=== PATIENT | female | born 1965 | race African-American/Black ===

== ENCOUNTER 2016-12-17 16:45 | Emergency (ER) | payer BC ==
[2016-12-17 13:45] LABS: BASOPHILS 0.2 %; BASOPHILS ABSOLUTE 0.01 10/3/uL (0.0-0.16); EOSINOPHILS 1.2 %; EOSINOPHILS ABSOLUTE 0.07 10/3/uL (0.0-0.53); ER CBC TAT 0 Hrs 09 Mins; HEMATOCRIT 36.5 % (36.0-48.0); HEMOGLOBIN 11.8 g/dL (12.0-16.0); IMMATURE GRANULOCYTES 0.5 %; IMMATURE GRANULOCYTES ABSOLUTE 0.03 10/3/uL (0.0-0.11); LYMPHOCYTES 31.3 %; LYMPHOCYTES ABSOLUTE 1.76 10/3/uL (0.67-4.30); MANUAL DIFF NO %; MEAN CORPUS HGB CONC 32.3 g/dL (32.0-36.0); MEAN CORPUSCULAR HEMOGLOB 27.7 pg (26.0-34.0); MEAN CORPUSCULAR VOLUME 85.7 fL (80-100); MEAN PLATELET VOLUME 10.6 fL (9.2-13.0); MONOCYTES 7.1 %; NEUTROPHILS 59.7 %; NEUTROPHILS ABSOLUTE 3.35 10/3/uL (2.02-8.40); PLATELET COUNT 367 10/3/uL (150-400); RBC DISTRIBUTION WIDTH 12.5 % (12.0-16.0); RED CELL COUNT 4.26 10/6/uL (4.0-5.6); WHITE BLOOD CELLS 5.6 10/3/uL (4.5-10.5)
[2016-12-17 13:54] LABS: INTERNATIONAL NORMAL RATI 1.7 UNITS (-)
[2016-12-17 13:55] LABS: PARTIAL THROMBO TIME 32.1 SEC (22.5-37.2)
[2016-12-17 14:01] LABS: CALCIUM, SERUM 8.6 MG/DL (8.5-10.4); CHEST PAIN PROFILE TAT 0 Hrs 25 Mins; CHLORIDE, SERUM 100 MMOL/L (96-112); CO2 (CARBON DIOXIDE) 30 MMOL/L (24-34); CREATININE 1.23 MG/DL (0.55-1.02); GFR AFRICAN AMERICAN 59 ML/MIN (>=60); GFR NON AFRICAN AMERICAN 51 ML/MIN (>=60); POTASSIUM, SERUM 3.9 MMOL/L (3.5-5.3); SODIUM, SERUM 138 MMOL/L (135-148); TROPONIN I <0.02 NG/ML (<0.05)
[2016-12-17 14:02] LABS: BUN (BLOOD UREA NITROGEN) 19 MG/DL (6-23); GLUCOSE, SERUM 407 MG/DL (60-99); PROTIME (NOT ORD) 19.6 SEC (12.0-14.5)
[~2016-12-17 16:45] MED LIST: *UNABLE1; AMARYL PO; AMARYL4 PO; C5 PO; COREG6 PO; DEPAK250ER PO; DEPAKOTE 125 M125 MG PO; DEPAKOTE PO; DULERA 200 MCG/13 GM INH; GLUCPH PO; HUMALOG SC; IMU PO; JANTOVEN7.5 MG PO; L20 PO; LANTUS SC; LIPITOR20 PO; LISINOPRIL PO; LISINOPRIL40 MG PO; NORCO1 TA1 PO; P10 PO; P5 PO; PROAIR HFA INH; VALTREX PO; VITD PO; ZESTRIL40 MG PO; ZOVIRAX400 MG PO
== END 2016-12-17 18:33 | disposition home or self-care (01) ==
LOC: ER 16:45
PROVIDERS: Hospitalist
DX: R09.1 Pleurisy (principal); E11.65 Type 2 diabetes mellitus with hyperglycemia; I11.0 Hypertensive heart disease with heart failure; I50.9 Heart failure, unspecified; J44.9 Chronic obstructive pulmonary disease, unspecified; Z86.711 Personal history of pulmonary embolism; Z86.718 Personal history of other venous thrombosis and embolism; Z87.891 Personal history of nicotine dependence; Z88.0 Allergy status to penicillin; Z88.2 Allergy status to sulfonamides; Z88.5 Allergy status to narcotic agent; Z79.01 Long term (current) use of anticoagulants; Z79.4 Long term (current) use of insulin; Z79.52 Long term (current) use of systemic steroids; Z79.899 Other long term (current) drug therapy
CPT/HCPCS: 71020; 71275; 80048; 83735; 83880; 84484; 85025; 85610; 85730; 93005; 99285; Q9967